=== PATIENT | female | born 1985 | race Caucasian/White ===

== ENCOUNTER 2024-09-11 11:54 | Day surgery (SDC) | payer OTHER ==
[2024-09-10 10:37] VITALS: BMI 20.9
[2024-09-11 12:49] LABS: Anion Gap 10 mmol/L (10-20); BUN (Urea Nitrogen) 14 mg/dL (7.0-18.7); Calc. Creatinine Clearance 118 mL/min (70-130); Carbon Dioxide 27 mmol/L (22-29); Chloride 105 mmol/L (98-107); Estimated GFR 113; Glucose 84 mg/dL (70-105); Potassium 3.8 mmol/L (3.5-5.1); Sodium 138 mmol/L (136-145)
[2024-09-11] MEDS ORDERED: Lidocaine 1% PF 5 ML VIAL ONE (12:57)
[2024-09-11] MEDS ORDERED: Ondansetron PF 4 MG/2 ML Vial ONE ×2 (12:57→15:53)
[2024-09-11] MEDS ORDERED: Rocuronium Bromide 10 MG/ML (10ML VIAL) ONE (12:57)
[2024-09-11] MEDS ORDERED: PROPOFOL 40 ML ONE (12:57)
[2024-09-11] MEDS ORDERED: Dexamethasone 4 mg/ml Vial ONE (12:57)
[2024-09-11] MEDS ORDERED: fentaNYL 50 mcg/mL 1 mL Vial ONE ×4 (12:58→16:03)
[2024-09-11] MEDS ORDERED: Lidocaine 1% w/Epinephrine 1:200K 30 ML VIAL ONE (13:20)
[2024-09-11] MEDS ORDERED: SUGAMMADEX SODIUM 200 MG/2 ML VIAL ONE (14:26)
[2024-09-11] MEDS ORDERED: Promethazine HCl 25 MG/ML VIAL ONE (16:24)
[2024-09-11] MEDS ORDERED: Hydrocodone-Acetamin 15 ML UDCUP ONE (16:37)
== END 2024-09-11 17:25 | disposition home or self-care (01) ==
LOC: CSHSDC 11:54
PROVIDERS: ATTEND Specialist
DX: E21.3 Hyperparathyroidism, unspecified (principal)
CPT/HCPCS: 36415; 80048; 88305; C1889; J1100; J2405; J2550; J2704; J3010

== ENCOUNTER 2024-10-13 10:21 | Outpatient (CLI) | payer OTHER | END 2024-10-13 10:22 | disposition home or self-care (01) | LOC: CSHULT 10:21 | PROVIDERS: ATTEND Urology | DX: N20.0 Calculus of kidney (principal) | CPT/HCPCS: 74018; 76770 ==